=== PATIENT | male | born 1995 | race Caucasian/White ===

== ENCOUNTER 2018-05-20 05:27 | Emergency (ER) | payer SELFPAY ==
[~2018-05-20] VITALS: Ht 185.4 cm; Wt 86.0 kg
[2018-05-20] MEDS ORDERED: SODIUM CHLORIDE 0.9% 1,000 ML IV ONE ×2 (06:25→07:43)
[2018-05-20] MEDS ORDERED: LORAZEPAM 2MG/ML CPJ IV STA (06:25)
[2018-05-20] MEDS ORDERED: CEFTRIAXONE 1 G PREMIX 50 ML IV ONE (06:45)
[2018-05-20 07:22] LABS: CHLORIDE 91 mEq/L (98-107)
[2018-05-20 07:23] LABS: INR 1.1; PROTHROMBIN TIME 11.4 sec (9.4-11.6)
[2018-05-20 07:26] LABS: ETHANOL BLOOD < 10 mg/dL
[2018-05-20 07:33] LABS: HEMATOCRIT. 38.9 % (42.0-52.0); HEMOGLOBIN. 13.8 g/dL (14.0-18.0); MEAN CORPUSCULAR HEMOGLOBIN 28.7 pg (28.0-32.0); MEAN CORPUSCULAR VOLUME 81.1 fL (80.0-94.0); MEAN PLATELET VOLUME 8.3 fl (7.4-10.4); PLATELET 302 x1000/uL (130-400); RED CELL DISTRIBUTION WIDTH 12.7 % (11.6-14.6)
[2018-05-20 07:42] LABS: CREATINE KINASE 3413 IU/L (39-308)
[2018-05-20] MEDS ORDERED: LORAZEPAM 2MG/ML CPJ IV ONE (08:00)
[2018-05-20 08:11] LABS: PLATELET ESTIMATE NORMAL
[2018-05-20 09:20] LABS: *AMPHETAMINES SCREEN URINE PRESUMTIVE POSITIVE (NEGATIVE); *BARBITURATES SCREEN URINE NEGATIVE (NEGATIVE); *BENZODIAZEPINES SCREEN URINE PRESUMTIVE POSITIVE (NEGATIVE); *COCAINE SCREEN URINE PRESUMTIVE POSITIVE (NEGATIVE)
[2018-05-20 09:21] LABS: CANNABINOID URINE SCREEN NEGATIVE (NEGATIVE); METHADONE URINE SCREEN NEGATIVE (NEGATIVE); OPIATES URINE SCREEN PRESUMTIVE POSITIVE (NEGATIVE); PHENCYCLIDINE URINE SCREEN NEGATIVE (NEGATIVE)
[2018-05-20 10:48] VITALS: BP 122/65
== END 2018-05-20 10:54 | disposition home or self-care (01) ==
LOC: ER 05:35
DX: L03.113 Cellulitis of right upper limb (principal); F15.188 Other stimulant abuse with other stimulant-induced disorder; F14.10 Cocaine abuse, uncomplicated; F11.10 Opioid abuse, uncomplicated; M62.82 Rhabdomyolysis; R45.1 Restlessness and agitation; F17.210 Nicotine dependence, cigarettes, uncomplicated
CPT/HCPCS: 36415; 73130; 80053; 80305; 82550; 83605; 85025; 85610; 96365; 96366; 96375; 96376; 99285; G0482; J0696; J2060; J7030